=== PATIENT | male | born 1940 | race Native Hawaiian/Other Pacific Islander ===

== ENCOUNTER 2017-07-03 12:19 | Day surgery (SDC) | payer MEDICARE, OTHER ==
[2017-06-26 15:22] VITALS: PULSE 106
[2017-07-03 12:36] VITALS: BMI 23.8
[2017-07-03] MEDS ORDERED: Metoprolol 1 mg/ml Inj IVP ONE (13:15)
[2017-07-03] MEDS ORDERED: Propofol 10 mg/ml Inj (20 ML) ONE (13:55)
[2017-07-03] MEDS ORDERED: Midazolam 2 MG/2 ML VIAL ONE (13:55)
--- NOTE | 2017-07-03 14:09 | CP.SDSHP ---
Same Day Surgery H & P - History Proposed Procedure: egd/eus/ercp Pre-Op Diagnosis: dilated cbd - Previous Medical/Surgical History Cardiac: Hypertension, Arrhythmia Comments: pyelonephritis - Allergies Allergies: Allergies azithromycin Allergy (Verified 07/03/17 12:29) ITCHING moxifloxacin [From Avelox] Allergy (Verified 07/03/17 12:29) ITCHING - Physical Exam General Appearance: nl Vital Signs: Vital Signs 07/03/17 13:11 Temperature 96.4 F L Pulse Rate 89 Respiratory 16 Rate Blood Pressure 166/80 H O2 Sat by Pulse 100 Oximetry Mental Status: Alert & Oriented x3 Neuro: WNL Heart: WNL Lungs: WNL GI: WNL - {Optional Preform as Required} Abdomen: WNL - Impression Impression: 76m with biliary dilation and e coli bacteremia and gallstones, egd/ eus +/- ercp Pt. Evaluated Today:Candidate for Anesthesia & Procedure: Yes - Date & Time Date: 07/03/17 Time: 14:08 Short Stay Discharge - Short Stay Discharge Admitting Diagnosis/Reason for Visit: ABNORMAL FINDINGS ON DX IMAGING OF LIVER AND BILIA Disposition: HOME/ ROUTINE
[2017-07-03] MEDS ORDERED: Lactated Ringer's 1,000 ML IV ONE (14:10)
[2017-07-03 15:08] VITALS: TEMP 96.8
[2017-07-03 15:38] VITALS: O2SAT 100
[2017-07-03 15:49] VITALS: RESP 22
[2017-07-03 16:01] VITALS: BP 150/67; PULSE 138
== END 2017-07-03 15:45 | disposition short-term general hospital (02) ==
LOC: C.ENDO 12:19
PROVIDERS: ATTEND Internal Medicine
DX: K25.9 Gastric ulcer, unspecified as acute or chronic, without hemorrhage or perforation (principal); R93.2 Abnormal findings on diagnostic imaging of liver and biliary tract; K26.9 Duodenal ulcer, unspecified as acute or chronic, without hemorrhage or perforation; K29.50 Unspecified chronic gastritis without bleeding
CPT/HCPCS: 43239; 82948; 88305; 88342; J2250; J2704; J7120